=== PATIENT | male | born 1960 | race Asian ===

== ENCOUNTER 2019-03-27 13:28 | Emergency (ER) | payer OTHER ==
[~2019-03-27 13:28] MED LIST: DILT180C63 PO; FURO80TA3 PO; LOSA50TA64 PO; PHOSLOC PO; ROSU10TA22 PO; SENN1TAB7 PO; TRIMETAZIDINE PO
== END 2019-03-27 14:22 | disposition left against medical advice (07) ==
LOC: EMS 13:30
DX: Z00.00 Encounter for general adult medical examination without abnormal findings (principal); Z53.21 Procedure and treatment not carried out due to patient leaving prior to being seen by health care provider